=== PATIENT | female | born 1945 ===

== ENCOUNTER 2018-10-17 15:30 | Inpatient (IN) | payer OTHER ==
[~2018-10-17] VITALS: Ht 149.9 cm; Wt 89.4 kg
[2018-10-17] MEDS ORDERED: RIVASTIGMINE6 MG PO (17:13)
[2018-10-17] MEDS ORDERED: SYNTHROID112 MCG PO (17:13)
[2018-10-17] MEDS ORDERED: NAMENDA10 MG PO (17:13)
[2018-10-17] MEDS ORDERED: SIMVASTATIN20 MG PO (17:14)
[2018-10-17] MEDS ORDERED: LISINOPRIL10 MG PO (17:14)
[2018-10-17] MEDS ORDERED: TENORMIN50 M1 PO (17:14)
[2018-10-25] MEDS ORDERED: INTEGRA PLUS C1 EACH PO (08:38)
[2018-10-25] MEDS ORDERED: Septra Ds Tablet PO (08:38)
[2018-10-25] MEDS ORDERED: OXYC1TAB9 PO (08:38)
[2018-10-25] MEDS ORDERED: XARELTO10 MG PO (08:38)
== END 2018-10-25 12:23 | DRG 470 ==
LOC: ADM 15:30 → EDSTATUS 15:30 → O/R 10-21 06:50 → SURH 10-21 06:50
PROVIDERS: ADMIT Orthopaedic Surgery Sports Medicine
PROC: 0MQN0ZZ Repair Right Knee Bursa and Ligament, Open Approach (ICD-10-PCS; 2018-10-21)
PROC: 0SRC0J9 Replacement of Right Knee Joint with Synthetic Substitute, Cemented, Open Approach (ICD-10-PCS; principal; 2018-10-21 08:30)
DX: M17.11 Unilateral primary osteoarthritis, right knee (principal); G30.8 Other Alzheimer's disease; E78.00 Pure hypercholesterolemia, unspecified; E03.8 Other specified hypothyroidism; Z96.651 Presence of right artificial knee joint; S86.891A Other injury of other muscle(s) and tendon(s) at lower leg level, right leg, initial encounter